=== PATIENT | male | born 1990 | race Caucasian/White ===

== ENCOUNTER 2017-02-24 02:32 | Emergency (ER) | payer SELFPAY ==
[~2017-02-24] VITALS: Ht 175.3 cm; Wt 68.9 kg
[~2017-02-24 02:32] MED LIST: AMOX500T2 PO; HYDR-3456; HYDR-3816 PO; NAPR-243 PO; NFCHLORHGL PO; SULF1TAB38 PO
[2017-02-24 02:59] LABS: BASOPHILS % (AUTO) 0 % (0-10); EOSINOPHILS # (AUTO) 0.1 10^3/uL (0.0-0.3); EOSINOPHILS % (AUTO) 1 % (0-10); LYMPHOCYTES # (AUTO) 1.5 X 10^3 (1.0-4.0); LYMPHOCYTES % (AUTO) 22 % (12-44); MEAN CORPUSCULAR HEMOGLOBIN 32 PG (25-34); MEAN CORPUSCULAR HGB CONC 35 G/DL (32-36); MEAN CORPUSCULAR VOLUME 90 FL (80-99); MEAN PLATELET VOLUME 9.5 FL (7.4-10.4); MONOCYTES % (AUTO) 15 % (0-12); NEUTROPHILS # (AUTO) 4.1 X 10^3 (1.8-7.8); NEUTROPHILS % (AUTO) 62 % (42-75); PLATELET COUNT 200 10^3/uL (130-400); RED BLOOD COUNT 4.55 10^6/uL (4.35-5.85); RED CELL DISTRIBUTION WIDTH 12.7 % (10.0-14.5); WHITE BLOOD COUNT 6.7 10^3/uL (4.3-11.0)
[2017-02-24 03:20] LABS: ALANINE AMINOTRANSFERASE 16 U/L (0-55); ANION GAP 9 MMOL/L (5-14); ASPARTATE AMINO TRANSFERASE 19 U/L (5-34); BILIRUBIN,TOTAL 0.9 MG/DL (0.1-1.0); BLOOD UREA NITROGEN 12 MG/DL (7-18); BUN/CREATININE RATIO 14; CARBON DIOXIDE 19 MMOL/L (21-32); CHLORIDE 108 MMOL/L (98-107); CREATININE SERUM 0.84 MG/DL (0.60-1.30); GFR ESTIMATED > 60; GLUCOSE 97 MG/DL (70-105); POTASSIUM 3.5 MMOL/L (3.6-5.0); SODIUM 136 MMOL/L (135-145); TOTAL PROTEIN 6.5 GM/DL (6.4-8.2)
--- NOTE | 2017-02-24 03:37 | ED Neurological Problem ---
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 PER PT, FRIEND IN THE ROOM WITNESSED EPISODE. PT PRESENTLY AWAKE, ALERT, DOES C/O UPPER BACK PAIN. PT REPORTS 3YR HX OF SEIZURES BUT DENIES SEEING PCP FOR C/O. PT ALSO STATES THE SEIZURES ONLY HAPPEN WHILE HE IS SLEEPING. Nursing Sepsis Screen: No Definite Risk (TREVOR BRIONES MEDICAL STUDENT) History of Present Illness Time seen by provider: 03:15 Initial Comments Mr. Hinkle is a 26 year old male presenting with nighttime seizure. He reports being woken up by his brother, who said that he was "flopping" in bed, yelling in his sleep, and fighting breathing; the patient has no recollection of this event. He woke up and felt as out-of-body experience, had a weird taste in his mouth, and has felt confusion since waking up. He says that he has had weekly events like this for the last 3 years, since previous girlfriends have told him about similar episodes; his most recent episode was 2-3 nights ago. He has not seen a physician because he father had similar episodes and reportedly from complications of a seizure 2 years ago. Today the patient reports crampy hands and a numb face as well as back pain between his shoulder blades. Denies urinating in sleep, biting tongue, nausea or vomiting. The patient drank a 12- pack of beer and some Fireball whiskey throughout the day today; he has a history of drinking about twice per month and usually does not drink this much alcohol. (TREVOR BRIONES MEDICAL STUDENT) Time seen by provider: 02:54 Initial Comments This patient was seen and examined along with Trevor Briones, MS4. Patient is noted to be febrile. He gives a history of cough 3 days. 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 He has scattered skin lesions which she states are associated with a tick bites. Patient does not see a primary care provider often and has not been assessed for her seizure disorder he has not taken any seizure medications. He claims Dr. Kim as his primary care provider. His brother reports that the event he witnessed involved convulsions and an unresponsive state. Patient denies any drug use. Fingerstick blood sugar was 94. Patient is ambulatory in the ER. (CALLY ROMERO MD) Allergies and Home Medications Allergies Coded Allergies: Cephalexin Monohydrate (Verified Allergy, Unknown, 10/01/14) Home Medications Doxycycline Hyclate 100 Mg Tablet, 100 MG PO BID, #20 Prescribed by: CALLY BARRAGAN on 02/24/17 06 Levetiracetam 500 Mg Tablet, 500 MG PO BID, #30 Prescribed by: CALLY BARRAGAN on 02/24/17 0609 Constitutional: see HPI Eyes: No Symptoms Reported Ears, Nose, Mouth, Throat: no symptoms reported Respiratory: no symptoms reported Cardiovascular: no symptoms reported Gastrointestinal: no symptoms reported Genitourinary: no symptoms reported Musculoskeletal: back pain (TREVOR BRIONES MEDICAL STUDENT) Skin: see HPI Psychiatric/Neurological: See HPI Endocrine: No Symptoms Reported (CALLY ROMERO MD) Past [id number] Hx Patient Social History Alcohol Use: Occasionally Uses Recreational Drug Use: No Smoking Status: Current Everyday Smoker Type Used: Cigarettes Recent Foreign Travel: No Contact w/Someone Who Travel: No Recent Infectious Disease Expo: No (TREVOR BRIONES STUDENT) Immunizations Up To Date Tetanus Booster (TDap): Less than 5yrs (TREVOR BRIONES) Surgeries HX Surgeries: Yes (dental extraction on 09/29/14) (TREVOR BRIONES) Respiratory Hx Respiratory Disorders: No (TREVOR BRIONES) Cardiovascular Hx Cardiac Disorders: Yes Cardiac Disorders: Heart Murmur (TREVOR BRIONES) Neurological Hx Neurological Disorders: No Neurological Disorders: Seizure Disorder (TREVOR BRIONES) Reproductive System Hx Reproductive Disorders: No Sexually Transmitted Disease: No (TREVOR BRIONES) Genitourinary Hx Genitourinary Disorders: No (TREVOR BRIONES) Gastrointestinal Hx Gastrointestinal Disorders: Yes Gastrointestinal Disorders: Gall Bladder Disease (TREVOR BRIONES STUDENT) Musculoskeletal Hx Musculoskeletal Disorders: No (TREVOR BRIONES) Endocrine Hx Endocrine Disorders: No (TREVOR BRIONES) HEENT HX ENT Disorders: No (TREVOR BRIONES) Cancer Hx Cancer: No (NANDINI,TREVOR J MEDICAL STUDENT) Psychosocial Hx Psychiatric Problems: No (TREVOR BRIONES MEDICAL STUDENT) Blood Transfusions Hx Blood Disorders: No (TREVOR BRIONES MEDICAL [place]) Family Medical History Significant Family History: No Pertinent Family Hx Family Medial History: Patient reports no known family medical history. (TREVOR BRIONES STUDENT ) Significant Family History: Seizures (In father) Family Medial History: Patient reports no known family medical history. (CALLY ROMERO MD) Physical Exam Vital Signs Vital Sign - Last 12Hours 02/24/17 02:38 Temp 100.9 Pulse 87 Resp 20 B/P (MAP) 135/68 Pulse Ox 100 O2 Delivery Room Air (CALLY ROMERO MD) Vital Signs Capillary Refill : Less Than 3 Seconds (TREVOR BRIONES STUDENT) General Appearance: WD/WN, no apparent distress HEENT: PERRL/EOMI, normal ENT inspection, TMs normal, pharynx normal Respiratory: chest non-tender, lungs clear, normal breath sounds, no respiratory distress Cardiovascular: regular rate, rhythm, no murmur Neurologic/Psychiatric: alert, normal mood/affect, oriented x 3 Skin: normal color, warm/dry (TREVOR BRIONES MEDICAL STUDENT) General Appearance: other (Somnolent but easily arousable. Appears uncomfortable due to musculoskeletal pain) HEENT: other (Dentures) Neck: normal inspection Respiratory: lungs clear, normal breath sounds, no respiratory distress Cardiovascular: regular rate, rhythm, no edema, no murmur Gastrointestinal: normal bowel sounds, non tender, soft Back: normal inspection Extremities: normal inspection, no pedal edema Neurologic/Psychiatric: design editor II-XII nml as tested, no motor/sensory deficits, alert, oriented x 3, other (Patient somnolent but easily arousable) Crainal Nerves: normal hearing, normal speech, PERRL Motor/Sensory: no motor deficit, no sensory deficit Skin: rash (Scattered erythematous skin lesions consistent with tick or insect bites) (CALLY ROMERO MD) Progress/Results/Core Measures Results/Orders Lab Results Laboratory Tests Test 02/24/17 02:51 02/24/17 02:57 02/24/17 03:38 Range/Units White Blood Count 6.7 4.3-11.0 10^3/uL Red Blood Count 4.55 4.35-5.85 10^6/uL Hemoglobin 14.4 13.3-17.7 G/DL Hematocrit 41 40-54 % Mean Corpuscular Volume 90 80-99 FL Mean Corpuscular Hemoglobin 32 25-34 PG Mean Corpuscular Hemoglobin Concent 35 32-36 G/DL Red Cell Distribution Width 12.7 10.0-14.5 % Platelet Count 200 130-400 10^3/uL Mean Platelet Volume 9.5 7.4-10.4 FL Neutrophils (%) (Auto) 62 42-75 % Lymphocytes (%) (Auto) 22 12-44 % Monocytes (%) (Auto) 15 H 0-12 % Eosinophils (%) (Auto) 1 0-10 % Basophils (%) (Auto) 0 0-10 % Neutrophils # (Auto) 4.1 1.8-7.8 X 10^3 Lymphocytes # (Auto) 1.5 1.0-4.0 X 10^3 Monocytes # (Auto) 1.0 0.0-1.0 X 10^3 Eosinophils # (Auto) 0.1 0.0-0.3 10^3/uL Basophils # (Auto) 0.0 0.0-0.1 10^3/uL Sodium Level 136 135-145 MMOL/L Potassium Level 3.5 L 3.6-5.0 MMOL/L Chloride Level 108 H 98-107 MMOL/L Carbon Dioxide Level 19 L 21-32 MMOL/L Anion Gap 9 5-14 MMOL/L Blood Urea Nitrogen 12 7-18 MG/DL Creatinine 0.84 0.60-1.30 MG/DL Estimat Glomerular Filtration Rate > 60 BUN/Creatinine Ratio 14 Glucose Level 97 70-105 MG/DL Calcium Level 9.0 8.5-10.1 MG/DL Total Bilirubin 0.9 0.1-1.0 MG/DL Aspartate Amino Transf (AST/SGOT) 19 5-34 U/L Alanine Aminotransferase (ALT/SGPT) 16 0-55 U/L Alkaline Phosphatase 49 40-136 U/L Total Protein 6.5 6.4-8.2 GM/DL Albumin 4.0 3.2-4.5 GM/DL Serum Alcohol < 10 <10 MG/DL Glucometer 94 70-110 MG/DL Urine Color YELLOW Urine Clarity SLIGHTLY CLOUDY Urine pH 8 5-9 Urine Specific Haynes 1.015 L 1.016-1.022 Urine Protein NEGATIVE NEGATIVE Urine Glucose (UA) NEGATIVE NEGATIVE Urine Ketones NEGATIVE NEGATIVE Urine Nitrite NEGATIVE NEGATIVE Urine Bilirubin NEGATIVE NEGATIVE Urine Urobilinogen 4 H NORMAL MG/DL Urine Leukocyte Esterase NEGATIVE NEGATIVE Urine RBC (Auto) NEGATIVE NEGATIVE Urine RBC NONE /HPF Urine WBC NONE /HPF Urine Squamous Epithelial Cells RARE /HPF Urine Crystals PRESENT H /LPF Urine Amorphous Sediment MOD LUCIANO PHOSPHATE H /LPF Urine Bacteria TRACE /HPF Urine Casts NONE /LPF Urine Mucus NEGATIVE /LPF Urine Culture Indicated NO Urine Opiates Screen NEGATIVE NEGATIVE Urine Oxycodone Screen NEGATIVE NEGATIVE Urine Methadone Screen NEGATIVE NEGATIVE Urine Propoxyphene Screen NEGATIVE NEGATIVE Urine Barbiturates Screen NEGATIVE NEGATIVE Ur Tricyclic Antidepressants Screen NEGATIVE NEGATIVE Urine Phencyclidine Screen NEGATIVE NEGATIVE Urine Amphetamines Screen POSITIVE H NEGATIVE Urine Methamphetamines Screen NEGATIVE NEGATIVE Urine Benzodiazepines Screen NEGATIVE NEGATIVE Urine Cocaine Screen NEGATIVE NEGATIVE Urine Cannabinoids Screen NEGATIVE NEGATIVE (CALLY ROMERO MD) My Orders Orders - CALLY ROMERO MD Cbc With Automated Diff (02/24/17 02:53) Comprehensive Metabolic Panel (02/24/17 02:53) Ua Culture If Indicated (02/24/17 02:53) Accucheck Stat ONCE (02/24/17 02:53) Saline Lock/Iv-Start (02/24/17 02:53) Alcohol (02/24/17 03:39) Drug Screen Stat (Urine) (02/24/17 03:39) Chest 1 View, Ap/Pa Only (02/24/17 04:41) Levetiracetam Injection (Keppra Injectio (02/24/17 04:45) Acetaminophen Tablet (Tylenol Tablet) (02/24/17 04:45) Ketorolac Injection (Toradol Injection) (02/24/17 06:00) Doxycycline Hyclate Tablet (Vibramycin T (02/24/17 06:00) Tick Panel With Lyme Eia (02/24/17 06:01) (CALLY ROMERO MD) Medications Given in ED Current Medications Medications Dose Ordered Sig/Madelin Route Start Time Stop Time Status Last Admin Dose Admin Acetaminophen 1,000 mg ONCE ONCE PO 02/24/17 04:45 02/24/17 04:46 DC 02/24/17 04:53 1,000 MG Doxycycline Hyclate 100 mg ONCE ONCE PO 02/24/17 06:00 02/24/17 06:01 DC 02/24/17 06:06 100 MG Ketorolac Tromethamine 30 mg ONCE ONCE IVP 02/24/17 06:00 02/24/17 06:01 DC 02/24/17 06:07 30 MG Levetiracetam 500 mg/Sodium Chloride 55 ml @ 220 mls/hr ONCE ONCE IV 02/24/17 04:45 02/24/17 04:59 DC 02/24/17 04:52 220 MLS/HR (CALLY ROMERO MD) Vital Signs/I&O Vital Sign - Last 12Hours 02/24/17 02/24/17 02:38 06:25 Temp 100.9 Pulse 87 79 Resp 20 20 B/P (MAP) 135/68 Pulse Ox 100 99 O2 Delivery Room Air Room Air (CALLY ROMERO MD) Blood Pressure Mean: 90 Point of Care Testing Finger Stick Blood Glucose: 94 (TREVOR BRIONES MEDICAL STUDENT) Progress Note : Progress Note Patient was given a dose of Keppra for seizure prevention. A prescription for Keppra was also provided to prevent seizure until follow-up with his provider. Patient was febrile but displayed no source of infection on chest x-ray or urinalysis. Patient was empirically treated with doxycycline and tested for tickborne disease diseases given the history of numerous tick bites. Toradol was administered for musculoskeletal pain. Patient reports the back pain he is experiencing is not unusual for his post seizure state. Patient received Tylenol for his fever. Patient tested positive for amphetamines but denies any recent use of amphetamines. (CALLY ROMERO MD) Diagnostic Imaging Diagonstic Imaging: Xray Plain Films/CT/US/NM/MRI: chest Comments Chest x-ray viewed by me. Report not yet available. No acute abnormalities appreciated. (CALLY ROMERO MD) Departure Impression Impression: Primary Impression: Seizure Additional Impressions: Backache Qualified Codes: M54.9 - Dorsalgia, unspecified Fever Qualified Codes: R50.9 - Fever, unspecified Tick bites Qualified Codes: W57.XXXA - Bitten or stung by nonvenomous insect and other nonvenomous arthropods, initial encounter Disposition: 01 HOME, SELF-CARE Condition: Improved Departure-Patient Inst. Decision time for Depature: 05:50 (CALLY ROMERO MD) Referrals: NO,LOCAL PHYSICIAN (PCP/Family) Primary Care Physician Patient Instructions: Seizures, Adult (DC) Add. Discharge Instructions: Follow-up with your primary care provider as soon as possible. Call this morning for an appointment. Take Keppra as prescribed to prevent further seizure. Stay on top of treatment of your fever by taking Tylenol ( acetaminophen) 1000 milligrams every 6 hours as needed. Return to care if symptoms worsen or if you have recurrent seizures. Do not drive until cleared by a physician. Avoid environments that may be hazardous should you have another seizure such as swimming pools, heights, machinery, vehicles, etc. Complete your antibiotics as prescribed. All discharge instructions reviewed with patient and/or family. Voiced understanding. Scripts Doxycycline Hyclate (Doxycycline Hyclate) 100 Mg Tablet 100 MG PO BID, #20 TAB Prov: CALLY ROMERO MD 02/24/17 Levetiracetam (Keppra) 500 Mg Tablet 500 MG PO BID, #30 TAB Prov: CALLY ROMERO MD 02/24/17 TREVOR BRIONES MEDICAL STUDENT Feb 24, 2017 03:37 CALLY ROMERO MD Feb 24, 2017 06:00
[2017-02-24 04:05] LABS: BILIRUBIN,URINE NEGATIVE (NEGATIVE); KETONES,URINE NEGATIVE (NEGATIVE); LEUKOCYTE ESTERASE ,URINE NEGATIVE (NEGATIVE); NITRITE,URINE NEGATIVE (NEGATIVE); PH,URINE 8 (5-9); PROTEIN,URINE NEGATIVE (NEGATIVE); UROBILINOGEN,URINE 4 MG/DL (NORMAL)
[2017-02-24 04:17] LABS: SQUAMOUS EPITHELIAL CELL,UR RARE /HPF
[2017-02-24] MEDS ORDERED: LEVETIRACETAM INJECTION 500 MG in NS (IVPB) 50 ML IV ONE (04:45)
[2017-02-24] MEDS ORDERED: ACETAMINOPHEN 500 MG TAB (TYLENOL) PO ONE (04:45)
[2017-02-24] MEDS ORDERED: DOXYCYCLINE 100 MG (VIBRAMYCIN) TABLET PO ONE (06:00)
[2017-02-24] MEDS ORDERED: KETOROLAC 30 MG/ML VIAL IVP ONE (06:00)
[2017-02-24] MEDS ORDERED: LEVE500T99 PO (06:09)
[2017-02-24] MEDS ORDERED: DOXY100T2 PO (06:09)
[2017-02-24 06:25] VITALS: BP 115/71
--- NOTE | 2017-02-24 07:47 | Diagnostic Imaging Report ---
INDICATION: Seizure today FINDINGS: Frontal view of the chest demonstrates the lungs to be clear. The heart, mediastinum, pulmonary vascularity and visualized bony thorax are normal. IMPRESSION: Normal chest. Dictated by: Dictated on workstation # [id number]
--- OUTSIDE RECORDS SUMMARY | 2017-02-24 18:45 | XMS REPORT ---
Author Author MARLY GUERRIER [facility] eClinicalWorks Address Unknown Phone Unavailable Care Team Providers Care Cable Lacer Name Role Phone MARLY GUERRIER CP Unavailable Allergies, Adverse Reactions, Alerts Substance Reaction Event Type Keflex unknown Drug Allergy Problems Problem Type Condition ICD-9 Code Onset Dates Condition Status Assessment Ankle pain, right 719.47 Active Problem Acute pharyngitis 462 Active Medications No Known Medications Procedures Procedure Coding System Code Date Office Visit, Est Pt., Level 3 CPT-4 50547 Mar 29, 2015 X-RAY EXAM OF ANKLE CPT-4 41733 Mar 29, 2015 Vital Signs Date/Time: Mar 29, 2015 Temperature 98.4 F Weight 143.3 lbs Height 65 in BMI 23.84 Index Blood Pressure Diastolic 72 mmHg Blood Pressure Systolic 126 mmHg Cardiac Monitoring Heart Rate 84 bpm Results Name Result Date Reference Range Unit Abnormality Flag Xray : Ankle, Right 3 views (IN HOUSE) Summary Purpose eClinicalWorks Submission
--- OUTSIDE RECORDS SUMMARY | 2017-02-24 18:45 | XMS REPORT | Continuity of Care Document ---
Author Author [facility] Address Unknown Phone Unavailable Allergies Active Description Code Type Severity Reaction Onset Reported/Identified Relationship to Patient Clinical Status Yes Cephalexin Monohydrate [id number] Drug Allergy Unknown N/A 10/01/2014 Medications Problems Date Dx Coded Attending Type Code Diagnosis Diagnosed By 01/11/2013 SACHA BILLS Ot 883.0 01/11/2013 SACHA BILLS Ot E000.8 01/11/2013 SACHA BILLS Ot E849.0 01/11/2013 SACHA BILLS Ot E920.3 09/19/2013 LENORA GOODWIN APRN N 462 ACUTE PHARYNGITIS 05/30/2014 VIJAYA COY MD Ot 575.6 GB CHOLESTEROLOSIS 05/30/2014 VIJAYA COY MD Ot 789.06 ABDOMINAL PAIN, EPIGASTRIC 10/01/2014 SACHA BILLS Ot 525.9 DENTAL DISORDER NOS 10/01/2014 SACHA BILLS Ot 780.60 FEVER, UNSPECIFIED 10/01/2014 SACHA BILLS Ot V45.89 POSTSURGICAL STATES NEC 01/16/2016 CALLY ROMERO MD Ot F17.210 NICOTINE DEPENDENCE, CIGARETTES, UNCOMPL 01/16/2016 CALLY ROMERO MD T Ot R10.84 GENERALIZED ABDOMINAL PAIN 01/16/2016 CALLY ROMERO MD T Ot R11.2 NAUSEA WITH VOMITING, UNSPECIFIED 01/16/2016 CALLY ROMERO MD T Ot R19.7 DIARRHEA, UNSPECIFIED 01/17/2016 CALLY ROMERO MD T Ot F17.210 NICOTINE DEPENDENCE, CIGARETTES, UNCOMPL 01/17/2016 CALLY ROMERO MD T Ot R10.84 GENERALIZED ABDOMINAL PAIN 01/17/2016 CALLY ROMERO MD Ot R11.2 NAUSEA WITH VOMITING, UNSPECIFIED 01/17/2016 NICK MARIE, CALLY Mcelroy Ot R19.7 DIARRHEA, UNSPECIFIED Procedures Code Description [place] [address] INFLUENZA A & B (IN-HOUSE) 09/19/2013 Results Encounters ACCT No. Visit Date/Time Discharge Status Pt. Type Provider Facility Loc./Unit Complaint [id number] 09/19/2013 11:46:00 09/19/2013 23: 59:59 [facility] Outpatient LENORA GOODWIN APRN
[2017-02-25 04:08] LABS: LYME AB G M 0.07 Index (0.00-0.89)
[2017-02-25 08:31] LABS: LYME AB INTERP Negative (Negative)
[2017-02-25 08:32] LABS: TULAREMIA ANTIBODY <1:20
[2017-02-25 14:08] LABS: EHRLICHIA CHAFFEENSIS G ABY <1:16 (<1:16)
[2017-02-26 07:10] LABS: IGG ROCKY MOUNTAIN SPOTTED FEV <1:16 (<1:16); IGM ROCKY MOUNTAIN SPOTTED FEV <1:10 (<1:10)
== END 2017-02-24 06:25 | disposition home or self-care (01) ==
LOC: EDUNIT# 02:32 → ER 02:37
DX: T14.8 Other injury of unspecified body region (principal); G40.909 Epilepsy, unspecified, not intractable, without status epilepticus; R50.9 Fever, unspecified; M54.9 Dorsalgia, unspecified; F17.210 Nicotine dependence, cigarettes, uncomplicated; Z87.19 Personal history of other diseases of the digestive system; Z98.818 Other dental procedure status; W57.XXXA Bitten or stung by nonvenomous insect and other nonvenomous arthropods, initial encounter
CPT/HCPCS: 36415; 71010; 80053; 80306; 80320; 81000; 82962; 85025; 86618; 86666; 86668; 86757; 96365; 96375

== ENCOUNTER 2017-04-04 02:39 | Emergency (ER) | payer SELFPAY ==
[~2017-04-04] VITALS: Ht 172.7 cm; Wt 59.0 kg
[~2017-04-04 02:39] MED LIST changes: +DOXY100T2 PO; +LEVE500T99 PO
[2017-04-04 03:04] LABS: MEAN PLATELET VOLUME 9.9 FL (7.4-10.4); RED BLOOD COUNT 5.04 10^6/uL (4.35-5.85); RED CELL DISTRIBUTION WIDTH 12.8 % (10.0-14.5); WHITE BLOOD COUNT 9.8 10^3/uL (4.3-11.0)
[2017-04-04 03:19] LABS: ALANINE AMINOTRANSFERASE 29 U/L (0-55); ALBUMIN 4.4 GM/DL (3.2-4.5); ALCOHOL < 10 MG/DL (<10); ANION GAP 13 MMOL/L (5-14); ASPARTATE AMINO TRANSFERASE 41 U/L (5-34); BILIRUBIN,DIRECT 0.5 MG/DL (0.0-0.3); BILIRUBIN,INDIRECT 1.2 MG/DL; BILIRUBIN,TOTAL 1.7 MG/DL (0.1-1.0); BLOOD UREA NITROGEN 12 MG/DL (7-18); BUN/CREATININE RATIO 13; CALCIUM 9.7 MG/DL (8.5-10.1); CARBON DIOXIDE 23 MMOL/L (21-32); CHLORIDE 104 MMOL/L (98-107); CREATININE SERUM 0.92 MG/DL (0.60-1.30); GFR ESTIMATED > 60; GLUCOSE 122 MG/DL (70-105); POTASSIUM 3.4 MMOL/L (3.6-5.0); SODIUM 140 MMOL/L (135-145)
[2017-04-04] MEDS ORDERED: IOHEXOL 350 MG/ML 100 ML (OMNIPAQUE 350) VIAL IV ONE (03:30)
[2017-04-04] MEDS ORDERED: NS 100 ML (IVPB) BAG IV ONE (03:30)
[2017-04-04 03:46] LABS: BILIRUBIN,URINE NEGATIVE (NEGATIVE); KETONES,URINE 2+ (NEGATIVE); LEUKOCYTE ESTERASE ,URINE NEGATIVE (NEGATIVE); NITRITE,URINE NEGATIVE (NEGATIVE); PH,URINE 5 (5-9); PROTEIN,URINE 1+ (NEGATIVE); UROBILINOGEN,URINE NORMAL (NORMAL)
[2017-04-04 03:53] LABS: CALCIUM OXALATE CRYSTALS,UR RARE /LPF; SQUAMOUS EPITHELIAL CELL,UR RARE /HPF
[2017-04-04 03:54] LABS: HYALINE CASTS, URINE RARE /LPF
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
[2017-04-04] MEDS ORDERED: TETANUS,DIPTH,PERTUSS P/F (BOOSTRIX) 0.5 ML VIAL IM ONE (04:30)
[2017-04-04] MEDS ORDERED: CLINDAMYCIN INJECTION 900 MG in NS (IVPB) 50 ML IV ONE (04:30)
[2017-04-04 05:42] VITALS: BP 122/80
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
== END 2017-04-04 05:42 | disposition short-term general hospital (02) ==
LOC: EDUNIT# 02:39 → ER 02:42
DX: S02.91XA Unspecified fracture of skull, initial encounter for closed fracture (principal); S06.4X9A Epidural hemorrhage with loss of consciousness of unspecified duration, initial encounter; S50.11XA Contusion of right forearm, initial encounter; S80.812A Abrasion, left lower leg, initial encounter; S80.811A Abrasion, right lower leg, initial encounter; F15.10 Other stimulant abuse, uncomplicated; F12.10 Cannabis abuse, uncomplicated; G40.909 Epilepsy, unspecified, not intractable, without status epilepticus; F17.210 Nicotine dependence, cigarettes, uncomplicated; Z23 Encounter for immunization; V09.20XA Pedestrian injured in traffic accident involving unspecified motor vehicles, initial encounter; Y92.410 Unspecified street and highway as the place of occurrence of the external cause
CPT/HCPCS: 36415; 51702; 70450; 71260; 72125; 73090; 74177; 80048; 80076; 80306; 80320; 81000; 85027; 90471; 90715; 93041; 96365

== ENCOUNTER 2017-04-16 14:15 | Emergency (ER) | payer SELFPAY ==
[~2017-04-16] VITALS: Ht 175.3 cm; Wt 65.8 kg
[2017-04-16 15:08] LABS: BASOPHILS # (AUTO) 0.1 10^3/uL (0.0-0.1); BASOPHILS % (AUTO) 1 % (0-10); EOSINOPHILS # (AUTO) 0.6 10^3/uL (0.0-0.3); EOSINOPHILS % (AUTO) 7 % (0-10); LYMPHOCYTES # (AUTO) 3.1 X 10^3 (1.0-4.0); LYMPHOCYTES % (AUTO) 36 % (12-44); MEAN CORPUSCULAR HEMOGLOBIN 31 PG (25-34); MEAN CORPUSCULAR HGB CONC 34 G/DL (32-36); MEAN CORPUSCULAR VOLUME 90 FL (80-99); MONOCYTES # (AUTO) 0.7 X 10^3 (0.0-1.0); MONOCYTES % (AUTO) 9 % (0-12); NEUTROPHILS # (AUTO) 4.2 X 10^3 (1.8-7.8); NEUTROPHILS % (AUTO) 48 % (42-75); PLATELET COUNT 317 10^3/uL (130-400); RED CELL DISTRIBUTION WIDTH 12.9 % (10.0-14.5); WHITE BLOOD COUNT 8.7 10^3/uL (4.3-11.0)
[2017-04-16 15:30] LABS: ALANINE AMINOTRANSFERASE 17 U/L (0-55); ANION GAP 8 MMOL/L (5-14); ASPARTATE AMINO TRANSFERASE 16 U/L (5-34); BILIRUBIN,TOTAL 0.3 MG/DL (0.1-1.0); BLOOD UREA NITROGEN 13 MG/DL (7-18); BUN/CREATININE RATIO 16; CARBON DIOXIDE 23 MMOL/L (21-32); CHLORIDE 105 MMOL/L (98-107); GFR ESTIMATED > 60; GLUCOSE 116 MG/DL (70-105); POTASSIUM 3.9 MMOL/L (3.6-5.0); SODIUM 136 MMOL/L (135-145); TOTAL PROTEIN 6.6 GM/DL (6.4-8.2)
[2017-04-16] MEDS ORDERED: ONDA4TAB8 SL (16:57)
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
[2017-04-16 17:17] VITALS: BP 115/60
--- NOTE | 2017-04-16 22:04 | Diagnostic Imaging Report ---
PROCEDURE: CT head and maxillofacial without contrast. TECHNIQUE: Multiple contiguous axial images were obtained through the head and facial bones without the use of intravenous contrast. INDICATION: Seizures, prior trauma. CT HEAD: The CT head exam performed on 04/04/17 noted fractures of the left zygomatic arch, sphenoid wing and orbital apex with a tiny middle cranial fossa extra-axial hematoma. There is also a trace amount of pneumocephalus with a small amount of intracranial hemorrhage. On this exam, the nondisplaced fracture in the midportion of the left zygomatic arch and the fracture through the floor of the sphenoids wing and middle cranial fossa seen previously are again evident and no different. However, the small amount of hemorrhage and intracranial gas seen previously has resolved. There is no mass, shift of the midline or extra-axial fluid collection. The ventricles are stable in size. The bone windows are unremarkable for a skull fracture.. The orbits are symmetrical and within normal limits. The sinuses, where visualized, are clear. IMPRESSION: 1. The fractures involving the sphenoid wing and middle cranial fossa and left zygomatic arch noted previously are again evident. However, there small amount of hemorrhage and pneumocephalus seen previously has resolved. 2. There is no acute intracranial abnormality noted. These results were discussed with Dr. Garcia Rivera in the ER by Dr. Rey prior to dictation. CT MAXILLOFACIAL The fracture of the midportion of the left zygomatic arch in the middle cranial fossa and the sphenoid wing seen on the prior study are again evident and essentially no different. No other fracture or acute bony abnormality is appreciated. The orbits are symmetrical and within normal limits. There is mild mucosal thickening of the ethmoid sinuses. The sinuses are otherwise clear. IMPRESSION: The fractures involving the left middle cranial fossa, the left sphenoid wing and left zygomatic arch seen previously are again evident and no different. There is no acute bony abnormality noted. These results were discussed with Dr. Garcia Rivera in the ER by Dr. Rey prior to dictation. Dictated by: Dictated on workstation # [id number]
== END 2017-04-16 17:12 | disposition home or self-care (01) ==
LOC: EDUNIT# 14:15 → ER 14:21
DX: S02.40FD Zygomatic fracture, left side, subsequent encounter for fracture with routine healing (principal); S02.19XD Other fracture of base of skull, subsequent encounter for fracture with routine healing; R40.0 Somnolence; R11.2 Nausea with vomiting, unspecified; G40.909 Epilepsy, unspecified, not intractable, without status epilepticus; F17.210 Nicotine dependence, cigarettes, uncomplicated; Z91.19 Patient's noncompliance with other medical treatment and regimen; Z87.81 Personal history of (healed) traumatic fracture; Z87.19 Personal history of other diseases of the digestive system; V09.20XA Pedestrian injured in traffic accident involving unspecified motor vehicles, initial encounter
CPT/HCPCS: 36415; 70450; 70486; 80053; 80306; 80320; 85025; 86141